=== PATIENT | female | born 1995 | race Caucasian/White ===

== ENCOUNTER 2018-03-22 06:01 | Emergency (ER) | payer BC, OTHER ==
[~2018-03-22] VITALS: Ht 157.5 cm; Wt 89.8 kg
[2018-03-22 06:08] VITALS: BP 130/78; Ht 157.5 cm; Wt 89.8 kg
== END 2018-03-22 06:46 | disposition home or self-care (01) ==
LOC: ED 06:01
DX: J03.90 Acute tonsillitis, unspecified (principal); Z90.49 Acquired absence of other specified parts of digestive tract
CPT/HCPCS: J0696